=== PATIENT | male | born 1975 | race Caucasian/White ===

== ENCOUNTER → 2023-10-23 15:03 | Outpatient (REF) | payer BC, SELFPAY | LOC: HWEVLT 15:03 | PROVIDERS: ATTENDING PHYSICIAN Radiology Vascular & Interventional Radiology | DX: I83.893 Varicose veins of bilateral lower extremities with other complications (principal) | CPT/HCPCS: 93970 ==

== ENCOUNTER → 2023-11-04 07:54 | Outpatient (REF) | payer BC, SELFPAY | LOC: HWEVLT 07:54 | PROVIDERS: ATTENDING PHYSICIAN Radiology Vascular & Interventional Radiology | DX: I83.892 Varicose veins of left lower extremity with other complications (principal) | CPT/HCPCS: 36478; C1769 ==

== ENCOUNTER → 2023-11-20 11:25 | Outpatient (REF) | payer BC, SELFPAY | LOC: HWEVLT 11:25 | PROVIDERS: ATTENDING PHYSICIAN Radiology Vascular & Interventional Radiology | DX: I83.892 Varicose veins of left lower extremity with other complications (principal) | CPT/HCPCS: 93971 ==

== ENCOUNTER → 2023-12-23 08:06 | Outpatient (REF) | payer BC, SELFPAY | LOC: HWEVLT 08:06 | PROVIDERS: ATTENDING PHYSICIAN Radiology Vascular & Interventional Radiology | DX: I83.891 Varicose veins of right lower extremity with other complications (principal) | CPT/HCPCS: 36478; C1769 ==

== ENCOUNTER → 2024-01-08 14:48 | Outpatient (REF) | payer BC, SELFPAY | LOC: HWEVLT 14:48 | PROVIDERS: ATTENDING PHYSICIAN Radiology Diagnostic Radiology | DX: I83.891 Varicose veins of right lower extremity with other complications (principal) | CPT/HCPCS: 93971 ==